=== PATIENT | female | born 1960 | race Caucasian/White ===

== ENCOUNTER 2025-02-05 09:58 | Day surgery (SDC) | payer MEDICARE, SELFPAY ==
[2025-01-30 12:15] VITALS: BMI 39.2
[2025-02-05] VITALS (7 sets, daily range): BP systolic 98–146; BP diastolic 48–69; PULSE 77–93; RESP 16–18; TEMP 36.2–36.3; O2SAT 94–98; BMI 35.8
--- NOTE | 2025-02-05 | PATH_ITS ---
[facility] Accession Number: [id number] No. of containers..01 Tissue . 01 Material submitted: . endometrium - ENDOMERIAL CURETTING . 01 Diagnosis: ENDOMETRIAL CURETTING: Fragments of benign polyp, favor origin from lower uterine segment. Negative for significant atypia. MRV 02/15/2025 1327 Local . 01 Comment: This case was also reviewed by Dr. Joy Wolfe, who agrees with the interpretation. . 01 Electronically signed: . Lissette Walker MD, Pathologist NPI- [id number] . 01 Gross description: . Received in formalin with two identifiers and A. Endometrial curetting is a 1.5 x 1.5 x 0.3 cm aggregate of araya-white tissue fragments, entirely submitted in A1. ([id number]) /MRV 02/12/2025 1750 Local . 01 Pathologist provided ICD-10: N85.8 . 01 CPT . 864865 Specimen Comment: A courtesy copy of this report has been sent to [phone] Performed at: [address] [facility] [address], [place], [place] [id number] MD Uli Copeland MD Phone: [phone]
--- NOTE | 2025-02-05 07:59 | PM.GYNHP.1 ---
History of Present Illness History of Present Illness Narrative: Theresa Mccoy is a 64 year old female 1 para 1 with a calcified uterine mass and endometrial thickening on ultrasound She presents for a D&C hysteroscopy and resection of the mass [facility] Medical History (Updated 01/30/25 @ 12:29 by Gris Sheriff RN) HLD (hyperlipidemia) Vision decreased Psoriasis (~2012) Eczema Osteoarthritis Depression (~1994) ADHD Chronic back pain (~1979) Chicken pox (~1962) Allergies Diverticular disease (~2016) Colon polyps Breast cancer (~2012) Anxiety (~1994) Diabetes mellitus type 2, noninsulin dependent (~1989) Hypertension (~2019) History of malignant neoplasm of breast Surgical History (Updated 05/14/24 @ 20:32 by Kim Carlson) Anesthesia History of surgery on arm (~2000) History of section (~12/16/82) Family History (Updated 05/14/24 @ 20:33 by Kim Carlson) Father History of heart disease Hyperlipidemia Mother Cancer Brother Diabetes mellitus Hyperlipidemia Hypertension Brother Diabetes mellitus History of heart disease Hyperlipidemia Hypertension Social History household members: none Smoking Status: Former smoker alcohol intake: current Meds Home Medications and Allergies Home Medications ?Medication ?Instructions ?Recorded ?Confirmed ?Type fluoxetine 10 mg capsule (Prozac) 10 mg PO DAILY 04/12/24 02/05/25 History glipizide 5 mg tablet 5 mg PO DAILY 04/12/24 02/05/25 History rosuvastatin 10 mg tablet 10 mg PO DAILY 04/12/24 02/05/25 History venlafaxine 75 mg capsule,extended 75 mg PO DAILY 04/12/24 02/05/25 History release 24 hr (Effexor XR) amlodipine 5 mg tablet 5 mg PO DAILY 01/30/25 01/30/25 History losartan 25 mg tablet 25 mg PO DAILY 01/30/25 01/30/25 History omeprazole 20 mg capsule,delayed 20 mg PO QAM 01/30/25 01/30/25 History release rosuvastatin 40 mg tablet 40 mg PO ONCE PM 01/30/25 01/30/25 History acetaminophen 325 mg tablet 650 mg PO Q6H 02/05/25 02/05/25 History (Aminofen) aspirin 81 mg tablet,delayed 81 mg PO DAILY 08/26/25 08/26/25 History release (Adult Aspirin Regimen) fexofenadine 60 mg tablet (Vandana 60 mg PO Q24H 02/05/25 02/05/25 History Allergy) ibuprofen 800 mg tablet (IBU) 800 mg PO Q12H 02/05/25 02/05/25 History tirzepatide 2.5 mg/0.5 mL 2.5 mg SUBCUT .q week 02/05/25 02/05/25 History subcutaneous pen injector (Mounjaro) Allergies Allergy/AdvReac Type Severity Reaction Status Date / Time metformin Allergy Severe Suicidal Verified 02/05/25 10:23 cyclobenzaprine (From AdvReac Severe Depression Verified 02/05/25 10:23 Flexeril) Sulfa (Sulfonamide AdvReac Severe Depression Verified 02/05/25 10:23 Antibiotics) Exam Narrative Exam Narrative: HEENT: No thyromegaly, no anterior cervical or supraclavicular lymphadenopathy. Lungs:Clear to auscultation bilaterally, no wheezes. Cardiovascular: Regular rate and rhythm, no murmurs, rubs, or gallops. Abdomen: Well-healed scars. No hepatosplenomegaly. No masses palpable. External genitalia: Normal Vagina: Normal Cervix: Normal Bimanual exam: 6 Week size retroverted uterus. Mobile. Extremities: No edema Assessment & Plan Assessment & Plan narrative: Assessment: 64-year-old 1 para 1 with a calcified uterine mass and endometrial thickening on ultrasound Plan: D&C hysteroscopy with resection of mass with MyoSure The risks, benefits, and alternatives to the procedure were explained to the patient. The risks including bleeding, infection, and uterine perforation. She understands these risks and agrees to proceed. A full par Q was held and consent form was signed. Time-Based Coding :: [TOTAL MINUTES] spent with patient and on the chart (including review of chart, obtaining history, exam, reviewing outside data, placing orders, documenting exam and treatment plan, and counseling patient) on [DATE].
--- NOTE | 2025-02-05 08:01 | PM.PREOP ---
Pre-operative Note Interval Note History & Physical reviewed/Exam performed by Physician: Yes Changes to H&P: No H&P completed within 30 days and has changed as indicated here:: 02/05/25
[2025-02-05] MEDS: LACTATED RINGERS 1,000 ML 42 ML IV (11:02)
[2025-02-05] MEDS: ACETAMINOPHEN IV 1,000 MG/100 ML VIAL 400 MG IV (11:03)
--- NOTE | 2025-02-05 11:46 | SUR.OPER ---
Lithotomy on padded OR bed, head on pillow, arms secured on padded arm boards at <90 degrees abduction. Legs secured in padded yellow fins stirrups.
--- NOTE | 2025-02-05 12:19 | PM.GYNOP.1 ---
Operative Date/Time/Diagnoses Date of procedure: 02/05/25 Time of procedure: 12:19 Pre-op diagnosis: Uterine mass, calcified Thickened endometrium on ultrasound Post-op diagnosis: same Procedure & Clinicians Procedure: Procedures Operation Date: 02/05/25 11:30 Actual Procedure Side Surgeon p Hysteroscopy D&C with MYOSURE Breann Peck MD Indications: 64-year-old with a calcified mass at the fundus of the uterus Surgeon: Breann Peck Anesthesia Type: General (LMA) Operative Notes Findings: 7 week size anteverted uterus Both fallopian tube ostia observed There was a small wall of scar in the lower uterine segment No calcified mass was seen at the fundus of the uterus There was a small polyp at the left fallopian tube ostia The endometrium was thickened on the posterior wall near the lower uterine segment Closure Type: not applicable Specimen(s): endometrial curettings Applied: none Estimated blood loss (mL): 3 Blood products transfused: none Procedure in detail: After informed consent was obtained, the patient was taken to the operating room where she was placed in the dorsal supine position. After adequate general endotracheal anesthesia was achieved, she was placed in the dorsal lithotomy position, and prepped and draped in the usual sterile fashion. A time-out was performed. A bivalve speculum was placed into the vagina and the anterior lip of the cervix was grasped with a single-tooth tenaculum. The cervical os was sequentially dilated until the MyoSure hysteroscope could pass easily into the endometrial cavity. Initially it appeared that a false track was created, but once the MyoSure hysteroscope was removed and dilation was performed in a different direction, the MyoSure hysteroscope pass easily into the endometrial cavity and both fallopian tube ostia were observed. There appeared to be a wall of thin scar tissue at the bottom of the uterus and this was broken down with dilation. There was no mass visualized up at the fundus of the uterus. There was some thickened endometrium posteriorly in the lower uterine segment. And the MyoSure Lite was used to resect this. There was also a small polypoid area at the left fallopian tube ostia, and this was removed with the MyoSure Lite as well. The instruments were removed from the uterus. The single-tooth tenaculum was removed from the anterior lip of the cervix. The bivalve speculum was removed from the vagina. Sponge, lap, and instrument counts were correct x2. The patient tolerated the procedure well, and was taken to PACU in stable condition. Complications: none Post-operative Condition: stable Disposition: PACU Plan for aftercare: Home after recovery
== END 2025-02-05 13:08 | disposition home or self-care (01) ==
PROVIDERS: PCP Family Medicine; Referring Provider Obstetrics & Gynecology; Visit Provider Obstetrics & Gynecology
PROC: 0UDB8ZZ Extraction of Endometrium, Via Natural or Artificial Opening Endoscopic (ICD-10-PCS; CPT 58558; principal; 2025-02-05 11:30)
DX: N85.8 Other specified noninflammatory disorders of uterus (principal); N84.0 Polyp of corpus uteri; R93.89 Abnormal findings on diagnostic imaging of other specified body structures
CPT/HCPCS: 58558; 82962; J0131; J1100; J1885; J2405; J2704